=== PATIENT | female | born 1970 | race Caucasian/White ===

== ENCOUNTER 2017-05-05 20:43 | Emergency (ER) | payer MEDICAID ==
[~2017-05-05] VITALS: Ht 152.4 cm; Wt 62.0 kg
[~2017-05-05 20:43] MED LIST: ALEVE220 M2 PO; AMOXICILLIN/CL875 MG OR; AMOXICILLIN500 MG OR; BACTRIM DS1 TAB PO; CIPRO250 MG OR; EC-NAPROSYN500 MG OR; LORTAB5 PO; MAXALT-MLT10 MG OR; MEDDOSEPAK PO; NAPROXEN500 MG PO; NO; NO HOME MEDS; PYRIDIUM200 MG PO; REGLAN5 MG OR; ULTRAM50 MG OR
[2017-05-05] MEDS ORDERED: AMOXICILLIN500 MG PO (21:01)
[2017-05-05] MEDS ORDERED: PERCOCET 5/325M1 TAB PO (21:01)
[2017-05-05 21:02] VITALS: BP 135/77
== END 2017-05-05 20:59 | disposition home or self-care (01) | DRG 159 ==
LOC: ED 20:43
DX: K08.89 Other specified disorders of teeth and supporting structures (principal); K06.9 Disorder of gingiva and edentulous alveolar ridge, unspecified

== ENCOUNTER 2023-01-18 21:21 | Emergency (ER) | payer SELFPAY ==
[~2023-01-18] VITALS: Ht 152.4 cm; Wt 66.0 kg
[~2023-01-18 21:21] MED LIST changes: +AMOXICILLIN500 MG PO; +PERCOCET 5/325M1 TAB PO
[2023-01-18 21:31] VITALS: BP 134/78
[2023-01-18 22:00] VITALS: BP 120/72
[2023-01-18 22:07] LABS: BASO% 0.6 % (0-3); EOS% 4.8 % (0-8); HEMATOCRIT 40.6 % (37.0-47.0); HEMOGLOBIN 13.5 g/dl (12.0-16.0); IMMATURE GRANULOCYTES 0.2 % (0.0-5.0); LYMPH% 32.6 % (15-41); MEAN CELL VOLUME 93.1 fL CALC (80.0-100.0); MEAN CORPUSCULAR HGB CONC 33.3 g/dL CAL (32.0-36.0); NEUT# 5.67 thou/uL (2.00-7.15); NEUT% 53.8 % (42-76); RED BLOOD COUNT 4.36 mill/uL (4.20-5.60); RED CELL DISTRI WIDTH 13.2 % (11.5-15.5)
[2023-01-18 22:25] LABS: ALBUMIN 4.2 g/dL (3.2-5.0); ALKALINE PHOSPHATASE 103 u/l (38-126); BILIRUBIN, TOTAL 0.5 mg/dL (0.02-1.3); BUN 10 mg/dL (7-17); BUN/CREATININE RATIO 20 (12-20 (CALC)); CHLORIDE 103 mmol/l (95-108); CREATININE 0.5 mg/dL (0.5-1.0); GFR FOR AFR.AMER. > 60 ML/MIN (>=60 (CALC)); GFR OTHER RACES > 60 ML/MIN (>=60 (CALC)); POTASSIUM 3.1 mmol/l (3.5-5.1); SGOT/AST 26 u/l (14-36); SODIUM 141 mmol/l (137-146); TOTAL PROTEIN 7.7 g/dL (6.3-8.2)
[2023-01-18 22:30] VITALS: BP 118/69
[2023-01-18 22:40] LABS: ANION GAP 10 (6-22 (CALC)); CARBON DIOXIDE 31 mmol/l (22-30)
[2023-01-18 23:00] VITALS: BP 119/76
[2023-01-18 23:30] VITALS: BP 131/79
[2023-01-18 23:46] VITALS: BP 131/79
== END 2023-01-18 23:58 | disposition left against medical advice (07) | DRG 313 ==
LOC: ED 21:21
PROVIDERS: Emergency Medicine
DX: R07.9 Chest pain, unspecified (principal); E11.9 Type 2 diabetes mellitus without complications; E78.00 Pure hypercholesterolemia, unspecified; F17.210 Nicotine dependence, cigarettes, uncomplicated; Z53.29 Procedure and treatment not carried out because of patient's decision for other reasons; Z20.822 Contact with and (suspected) exposure to COVID-19